=== PATIENT | male | born 1955 | race Caucasian/White ===

== ENCOUNTER → 2017-08-02 | Outpatient (CLI) | payer BC | LOC: GMAJ 14:14 | PROVIDERS: ATTEND Family Medicine | DX: Z00.00 Encounter for general adult medical examination without abnormal findings (principal) ==

== ENCOUNTER → 2018-04-12 | Outpatient (CLI) | payer MEDICARE ==
--- NOTE | 2018-04-12 08:35 | RAD ---
EXAM DESCRIPTION: Hand,Left 3 Views CLINICAL HISTORY: 63 years Male, PAIN COMPARISON: None. FINDINGS: Three views of the left hand were obtained. Evaluation of the fingers on the lateral view is limited by superimposition artifact. No acute fracture or malalignment is identified. There is a suture anchor in the trapezium with degenerative changes at the first CMC joint. Calcification adjacent to the ulnar styloid suggests an old nonunited fracture versus degenerative change. Mild degenerative changes about several interphalangeal joints. IMPRESSION: Degenerative and postoperative changes without acute left hand abnormality. Electronically signed by: Duglas Arguello MD 04/12/2018 8:34 AM [facility]
--- NOTE | 2018-04-12 08:38 | RAD ---
EXAM DESCRIPTION: Wrist,Left 3 Views CLINICAL HISTORY: 63 years Male, PAIN COMPARISON: None. FINDINGS: Three views of the left wrist show no acute fracture or malalignment. Anatomic form body projecting over the trapezium probably represents a suture anchor. There are moderate degenerative changes at the first CMC joint including joint space narrowing and osteophyte formation. Calcification adjacent to the ulnar styloid is not acute and may be related to remote trauma. The radiocarpal joint space is fairly well-maintained. No additional radiopaque foreign body or soft tissue gas. IMPRESSION: Postoperative and degenerative changes without acute left wrist abnormality. Electronically signed by: Duglas Arguello MD 04/12/2018 8:37 AM [facility]
== END ==
LOC: RAD 08:15
PROVIDERS: ATTEND Orthopaedic Surgery
DX: Z01.818 Encounter for other preprocedural examination (principal); M79.642 Pain in left hand; M25.532 Pain in left wrist

== ENCOUNTER 2018-05-08 05:50 | Day surgery (SDC) | payer MEDICARE, OTHER ==
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
[2018-05-08] MEDS ORDERED: ceFAZolin SODIUM 1 GM VIAL ONE (08:04)
[2018-05-08] MEDS ORDERED: LACTATED RINGERS 1,000 ML ONE (08:04)
[2018-05-08] MEDS ORDERED: SODIUM CHL 0.9% 100ML MINI-BAG 100 ML IVPB ONE (08:04)
[2018-05-08] MEDS ORDERED: BUPIVACAINE 0.25% INJ 30 ML VIAL INJ ONE (08:09)
[2018-05-08] MEDS ORDERED: LIDOCAINE 1% 10 ML VIAL INJ ONE (08:09)
[2018-05-08] MEDS ORDERED: PROPOFOL 200 MG/20 ML VIAL IV ONE (10:00)
[2018-05-08] MEDS ORDERED: MIDAZOLAM INJ 5 MG/5 ML VIAL ONE (10:24)
[2018-05-08] MEDS ORDERED: fentaNYL CITRATE INJ 50 MCG/ML AMP ONE (10:29)
[2018-05-08] MEDS: ceFAZolin SODIUM 1 GM VIAL ONE ×2 (11:40→11:43)
[2018-05-08] MEDS: VANCOMYCIN HCL INJ 1,000 MG VIAL IVPB ONE ×2 (11:40→11:43)
[2018-05-08 14:29] VITALS: BP 119/76; TEMP 97.1; O2SAT 99
--- NOTE | 2018-05-09 08:46 | OP ---
DATE OF PROCEDURE: 05/08/18 PREOPERATIVE DIAGNOSIS: 1. Carpal tunnel syndrome. POSTOPERATIVE DIAGNOSIS: 1. Carpal tunnel syndrome. PROCEDURE: 1. Carpal tunnel release. SURGEON: Boom Dixon MD. FRIT BURNER: Rob Khalil CST, SA-C. ANESTHESIA: Local with sedation. COMPLICATIONS: None. FINDINGS: 1. Thickening of the transverse carpal ligament. 2. Thenar atrophy. 3. Narrowing of the median nerve across the carpal tunnel. INDICATION: Mr. Multani has a very long history of symptoms consistent with carpal tunnel syndrome. In addition to injury to the median nerve many years ago, he has begun having more symptoms that are specific to the median nerve distribution. We talked about that and the fact that given his injury to the median nerve, his recovery from his current symptoms would be variable. We discussed the fact that he would not gain full return to normal since he essentially was abnormal to begin with. After discussing the risks, benefits and alternatives to that, the patient has given informed consent for carpal tunnel release. PROCEDURE: The patient was brought to the Operating Room and placed in the supine position. Sedation was administered and local anesthetic was injected into the operative area under sterile conditions. After the injection of anesthetic, the arm was sterilely prepped and draped. A longitudinal incision was made directly overlying the transverse carpal ligament and blunt dissection was carried down to the ligament. The transverse carpal ligament was sharply transected along its length and a [place] elevator was used to ensure complete release of the ligament. Once release had been confirmed, the wound was thoroughly irrigated and the wound was closed with Nylon suture. A sterile dressing was placed and the patient was taken to the Day Surgery Unit. POSTOPERATIVE PLAN: The patient has been encouraged to do range of motion of the digits and will followup with us in two days. [facility][id number] [facility]
== END 2018-05-08 12:45 | disposition home or self-care (01) ==
LOC: AMB 05:50
PROVIDERS: ATTEND Orthopaedic Surgery
DX: G56.02 Carpal tunnel syndrome, left upper limb (principal)
CPT/HCPCS: 01810; 64721; 80307; J0690; J2250; J3010; J3370; J3490; J7050; J7120

== ENCOUNTER → 2018-10-21 | Outpatient (CLI) | payer MEDICARE ==
--- NOTE | 2018-10-22 08:24 | CT ---
Procedure: CT LUNG SCREENING Exam Date: 10/21/2018. Ordering Provider: Humza Yang Clinical Indication: Tobacco use. Current cigarette smoker. 35 pack years. This patient meets eligibility criteria for low-dose CT lung cancer screening. Comparison: CT scan of the lungs May 16 2006. Technique: Using a multislice scanner, sequential helical axial imaging was obtained in the thorax, 2.5 mm thickness, 2.5 mm separation, from the level of the thoracic inlet through the lung bases without IV contrast. A low dose protocol was utilized for BMI less than 30: BMI: 20.5. CTDI: 1.76 mGy. 120. kVp. 45 mA. DLP 73.82 mGy-centimeters. 2D sagittal and coronal reconstructed images, 6.0 mm thickness, were obtained. This exam was performed according to our departmental dose optimization program which includes use of automated exposure control, adjustment of the mA and/or kV according to patient size and/or use of iterative reconstruction technique. Nodule measurements under 10 mm are given as mean value of 3 axes diameters. FINDINGS: Lungs and large airways: Small calcified nodule left upper lobe. 3 mm groundglass nodule on axial series 3, image 50. Bilateral blebs and occasional bulla in a centrilobular distribution more prevalent in the upper lung govea but also multiple small subpleural blebs posteriorly and medially adjacent to the right lower lobe. Fewer blebs abutting the left lower lobe and right middle lobe pleura. Also bibasilar dependent atelectasis, more on the right. Small calcified nodule right lower lobe. No pulmonary masses or focal infiltrates bilaterally. Pleura and space: No visible blebs as described previously mostly in the posterior right lower lobe. No pleural effusion or pneumothorax. Mediastinum and delmar: evaluation limited by low dose technique and lack of IV contrast. Fibrosis or thymus remnant in the anterior mediastinum. Lymph nodes upper limits of normal diameter in the mediastinum. No dominant soft tissue masses. Heart and great vessels: Calcification of 2 of the coronary arteries. Minimal atherosclerotic calcification of the aorta. Chest wall, lower neck, axillae: Evaluation also limited by same factors as described above. No dominant soft tissue masses. Upper abdomen: Evaluation limited by low-dose technique. No peritoneal fluid or free air. Gallbladder partially visualized. Atherosclerotic calcification of the abdominal aorta. Osseous structures: Evaluation limited by low dose MIP technique. Mild spondylosis and scoliosis. Arthrosis right sternoclavicular joint. No lytic or blastic lesions. IMPRESSION: Moderate emphysematous changes more parenchymal in the upper lung govea and more pleural-based in the lower thorax especially right lower lobe. Progression since the prior study in May 2006. No abnormal nodules, no masses, and no focal infiltrates.. [facility] Best Practice recommendations: Please see below for Lung RADS category and FOLLOW-UP.* *Lung RADS category Category 1 - No nodule or definitely benign nodules (probability of malignancy less than 1%). Follow-up: Continue annual screening with Low Dose Chest CT in 12 months. Electronically signed by: Rob Trujillo MD 10/22/2018 8:21 AM CDT
== END ==
LOC: CT 09:00
PROVIDERS: ATTEND Family Medicine
DX: Z87.891 Personal history of nicotine dependence (principal); J43.9 Emphysema, unspecified

== ENCOUNTER → 2018-10-25 | Outpatient (CLI) | payer MEDICARE, OTHER ==
--- NOTE | 2018-10-25 09:13 | RAD ---
EXAM DESCRIPTION: Hand,Left 3 Views CLINICAL HISTORY: M79.642 COMPARISON: April 12, 2018. TECHNIQUE: AP, LATERAL, AND OBLIQUE RADIOGRAPHS OF THE LEFT HAND. FINDINGS: The visualized bones appear well mineralized. No acute fracture or dislocation. Again noted is a suture anchor in the trapezium with the degenerative changes of the first CMC joint with slight subluxation. Persistent calcification adjacent to the ulnar-sided process likely represents an old nonunited fracture. Chondrocalcinosis of the TFCC cartilage is noted. Mild degenerative changes at several interphalangeal joints. IMPRESSION: 1. Stable postoperative changes with a suture anchor in the trapezium. 2. Severe degenerative changes of the first CMC joint with slight subluxation. 3. 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 4. Probable old nonunited ulnar styloid process fracture. Grossly normal radiographs of the right foot. Electronically signed by: Raymundo Camejo MD 10/25/2018 9:11 AM CDT
== END ==
LOC: RAD 08:35
PROVIDERS: ATTEND Orthopaedic Surgery
DX: M11.242 Other chondrocalcinosis, left hand (principal); M19.042 Primary osteoarthritis, left hand

== ENCOUNTER 2018-11-05 05:21 | Day surgery (SDC) | payer MEDICARE, OTHER ==
[2018-11-05] MEDS ORDERED: SODIUM CHL 0.9% 100ML MINI-BAG 100 ML IVPB ONE (05:51)
[2018-11-05] MEDS ORDERED: LACTATED RINGERS 1,000 ML ONE (05:51)
[2018-11-05] MEDS ORDERED: ceFAZolin SODIUM 1 GM VIAL ONE ×2 (05:52→06:38)
[2018-11-05] MEDS ORDERED: MIDAZOLAM INJ 5 MG/5 ML VIAL ONE (06:35)
[2018-11-05] MEDS ORDERED: fentaNYL CITRATE INJ 50 MCG/ML AMP ONE (06:36)
[2018-11-05] MEDS ORDERED: BUPIVACAINE 0.25% INJ 30 ML VIAL INJ ONE (06:39)
[2018-11-05] MEDS ORDERED: LIDOCAINE 1% 50 ML VIAL INJ ONE (06:39)
[2018-11-05] MEDS ORDERED: VANCOMYCIN HCL INJ 1,000 MG VIAL IVPB ONE (06:39)
[2018-11-05] MEDS ORDERED: PROPOFOL 200 MG/20 ML VIAL IV ONE (07:00)
[2018-11-05] MEDS ORDERED: LIDOCAINE 1% 10 ML VIAL INJ ONE (07:00)
[2018-11-05 08:58] VITALS: BP 117/67; TEMP 97.9; O2SAT 97
--- NOTE | 2018-11-07 08:04 | OP ---
DATE OF PROCEDURE: 11/05/18 PREOPERATIVE DIAGNOSIS: 1. Left first and fourth trigger finger. POSTOPERATIVE DIAGNOSIS: 1. Left first and fourth trigger finger. PROCEDURE: 1. Trigger finger release at left third and fourth digits. SURGEON: Boom Dixon MD. TEACHER'S AIDE: Rob Khalil CST, SA-C. ANESTHESIA: Local with sedation. COMPLICATIONS: None. FINDINGS: Triggering at the A1 marium on the first and fourth digits. INDICATION: Mr. Multani has a history of both pain and triggering at the A1 marium of both the aforementioned digits. Because of his ongoing pain, he has requested operative intervention. After discussing the risks, benefits and alternatives to operative therapy, the patient has given informed consent. PROCEDURE: The patient was brought to the Operating Room and placed in the supine position. Sedation was administered and local anesthetic was injected into the operative area. Following injection, the arm was sterilely prepped and draped. A transverse incision was made directly overlying the A1 marium of the first digit and blunt dissection was carried down to the marium while protecting the digital nerves. After identification of the marium, the marium was transected and a [place] elevator was passed both proximally and distally to ensure complete release. The finger was flexed and extended and there was no evidence of locking or clicking. The procedure was repeated at the fourth digits. The wounds were very thoroughly irrigated and closed with Nylon suture. A sterile dressings were placed and the patient was taken to the Day Surgery Unit. POSTOPERATIVE PLAN: The patient has been encouraged to do range of motion of the digits and will followup with us in two days. #[id number] [facility]
== END 2018-11-05 08:50 | disposition home or self-care (01) ==
LOC: AMB 05:21
PROVIDERS: ATTEND Orthopaedic Surgery
DX: M65.312 Trigger thumb, left thumb (principal); M65.342 Trigger finger, left ring finger; Z79.899 Other long term (current) drug therapy
CPT/HCPCS: 01810; 26055; 80307; 87070; J0690; J2250; J3010; J3370; J3490; J7050; J7120

== ENCOUNTER 2018-11-10 11:51 | Emergency (ER) | payer MEDICARE, OTHER ==
[2018-11-10] MEDS ORDERED: NITROGLYCERIN/D5W IV 250 ML IVS ONE (12:02)
[2018-11-10] MEDS ORDERED: HYDROmorphone HCL INJ 2 MG/ML VIAL IV ONE ×3 (13:15→14:44)
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
[2018-11-10] MEDS ORDERED: ceFAZolin SODIUM 2 GRAMS PREMI 2 GM in PREMIX BAG 1 BAG IVPB ONE (13:22)
[2018-11-10] MEDS ORDERED: TETANUS,DIPHTHERIA,PERTUSSIS 1 EA SYG IM ONE (13:22)
--- NOTE | 2018-11-10 13:32 | RAD ---
CLINICAL HISTORY: pain, swelling COMPARISON: None. TECHNIQUE: XR ANKLE 3 OR MORE VIEWS 11/10/2018 1:13 PM CDT FINDINGS: There is an oblique, mildly displaced fracture of the lower third of the fibular shaft. There are degenerative changes throughout the midfoot. There is subluxation of the tibiotalar joint. There is mostly medial soft tissue swelling around the ankle. IMPRESSION: Subluxation of tibiotalar joint with displaced distal fibular fracture. Electronically signed by: Paco Kaiser MD 11/10/2018 1:31 PM CDT
[2018-11-10] MEDS ORDERED: SODIUM CHLORIDE 0.9% 100ML 100 ML IVPB ONE (13:59)
[2018-11-10] MEDS ORDERED: ceFAZolin SODIUM 1 GM VIAL ONE (13:59)
[2018-11-10 16:08] VITALS: BP 126/79; TEMP 98.1; O2SAT 98
== END 2018-11-10 16:00 | disposition home or self-care (01) ==
LOC: ER 11:51
DX: S82.832A Other fracture of upper and lower end of left fibula, initial encounter for closed fracture (principal); Z23 Encounter for immunization; V09.9XXA Pedestrian injured in unspecified transport accident, initial encounter; Y93.89 Activity, other specified; Y92.9 Unspecified place or not applicable
CPT/HCPCS: 73610; 90471; 90715; J0690; J1170; J7050

== ENCOUNTER 2018-11-12 05:21 | Day surgery (SDC) | payer MEDICARE, OTHER ==
--- NOTE | 2018-11-11 11:46 | HP ---
CHIEF COMPLAINT: Left ankle pain. HISTORY OF PRESENT ILLNESS: Mr. Multani is a patient of ours that we treated for his hands. Unfortunately, he fell yesterday and had the acute onset of pain in the left ankle. He was taken to the Emergency Room and x-rays revealed a fracture of the ankle with lateral subluxation of the talus. He denies any other injury associated with this, denies radiation of pain or neurologic symptoms. He has been in a splint and on crutches since the even occurred. PAST SURGICAL HISTORY: 1. Carpal tunnel release. 2. Trigger finger release. MEDICATIONS: 1. Vitamins. PAIN CONTRACT: None. ALLERGIES: NO KNOWN DRUG ALLERGIES. CODE STATUS: Full code. IMMUNIZATIONS: Up to date. SOCIAL HISTORY: The patient does not smoke or use recreational drugs. He does drink on occasion. FAMILY HISTORY: None pertinent to today's complaint. REVIEW OF SYSTEMS: Negative except as indicated in the History of Present Illness. PHYSICAL EXAMINATION: VITAL SIGNS: Blood pressure 160/100. Pulse 72. Height 5'11". Weight 155 pounds. MENTAL STATUS: The patient is awake, alert, and is able to give a good history and participate in the physical. The patient is oriented to person, place and time. SKIN: Normal tone and turgor. HEENT: Normocephalic, atraumatic. Pupils equal, round and reactive. Mucosal membranes are moist. NECK: Normal range of motion. No thyromegaly, no lymphadenopathy. CHEST: Normal respiratory excursion. CARDIAC: Regular rate and rhythm. No murmurs, rubs or gallops. MUSCULOSKELETAL: The bilateral upper extremities show full active range of motion. He has intact sensation in the extremities and they are warm and well perfused. He has right lower extremity with intact sensation. It is warm and well perfused. There is no deformity and no malalignment. There is no swelling or crepitus with range of motion. The left lower extremity shows no deformity at the hip or knee. He has obvious lateral subluxation of the talus. He has swelling in the ankle, but it does appear to be amenable to surgery. He has intact sensation. His foot is warm and well perfused. There is a very small area over the medial malleolus where the skin has been compressed although it is intact right now. IMAGING: X-rays show a fibula fracture with lateral subluxation of the tibia and disruption of the mortise. ASSESSMENT: 1. Ankle fracture. PLAN: The plan at this point is for open reduction internal fixation. We have discussed the risks, benefits, and alternatives to that and the patient has given informed consent. #[id number] [facility]
[2018-11-12] MEDS ORDERED: LACTATED RINGERS 1,000 ML ONE (05:52)
[2018-11-12] MEDS ORDERED: ceFAZolin SODIUM 1 GM VIAL ONE ×3 (05:52→08:36)
[2018-11-12] MEDS ORDERED: SODIUM CHL 0.9% 100ML MINI-BAG 100 ML IVPB ONE (05:53)
[2018-11-12] MEDS ORDERED: VANCOMYCIN HCL INJ 1,000 MG VIAL IVPB ONE (06:37)
[2018-11-12] MEDS ORDERED: BUPIVACAINE 0.5% 30 ML VIAL INJ ONE (06:37)
[2018-11-12] MEDS ORDERED: BUPIVACAINE LIPOSOME 13.3 MG/ML VIAL INJ ONE (06:38)
[2018-11-12] MEDS ORDERED: HYDROmorphone HCL INJ 2 MG/ML VIAL ONE (06:45)
[2018-11-12] MEDS ORDERED: MIDAZOLAM INJ 2 MG/2 ML VIAL ONE (06:45)
[2018-11-12] MEDS ORDERED: KETAMINE HCL 50 MG/ML SYG IV ONE (06:52)
--- NOTE | 2018-11-12 09:46 | RAD ---
PROVIDED CLINICAL HISTORY/REASON FOR EXAM: ORIF Findings/impression: Four intraoperative fluoroscopic images of internal fixation of the left ankle fracture/subluxation. Dose: Not provided Time: Less than one hour Electronically signed by: Kahlil Puga MD 11/12/2018 9:44 AM CDT
[2018-11-12] MEDS ORDERED: raNITIdine HCL INJ 25 MG/ML VIAL IV ONE (10:00)
[2018-11-12] MEDS ORDERED: SODIUM CHLORIDE 0.9% 50 ML VIAL INJ ONE (10:00)
[2018-11-12] MEDS ORDERED: METOCLOPRAMIDE HCL INJ 10 MG/2 ML VIAL IV ONE (10:00)
[2018-11-12] MEDS ORDERED: PHENYLEPHRINE INJ 1ML 10 MG/ML VIAL IV ONE (10:00)
[2018-11-12] MEDS ORDERED: ePHEDrine SULF 50 MG/ML IV ONE (10:00)
[2018-11-12] MEDS ORDERED: LIDOCAINE 1% 10 ML VIAL INJ ONE (10:00)
[2018-11-12] MEDS ORDERED: diphenhydrAMINE HCL 50 MG/ML VIAL IV ONE (10:00)
[2018-11-12] MEDS ORDERED: DEXAMETHASONE INJ 10 MG/ML VIAL IV ONE (10:00)
[2018-11-12] MEDS ORDERED: PROPOFOL 200 MG/20 ML VIAL IV ONE (10:00)
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
[2018-11-12] MEDS ORDERED: HYDROcodone 5MG/APAP 325MG 1 EA TAB ONE (11:20)
[2018-11-12 13:06] VITALS: O2SAT 92
[2018-11-12 13:10] VITALS: BP 114/72; TEMP 98.8
--- NOTE | 2018-11-14 08:01 | OP ---
DATE OF PROCEDURE: 11/12/18 PREOPERATIVE DIAGNOSIS: 1. Left ankle fracture. POSTOPERATIVE DIAGNOSIS: 1. Left ankle fracture. PROCEDURE: 1. ORIF of ankle. SURGEON: Boom Dixon MD. MARKETING ANALYTICS ANALYST: Rob Khalil CST, SA-C. ANESTHESIA: General anesthesia. COMPLICATIONS: None. FINDINGS: Transverse fracture of the fibula and disruption of the mortise. INDICATION: Mr. Multani has a history of a fall that occurred on the day prior to presentation. Mr. Multani had x-rays that revealed an ankle fracture with instability of the mortise. Because of that, he and I discussed the risks, benefits and alternatives to operative therapy. Informed consent was obtained for ORIF. PROCEDURE: The patient was brought to the Operating Room and placed in supine position. General anesthesia was induced and the patient's leg was sterilely prepped and draped. An incision was made over the lateral aspect of the ankle centered on the fracture. Dissection was carried down to the fracture and it was reduced. A 7-hole plate was placed across the fracture and the mortise was reduced. Two syndesmosis screws were placed from lateral to medial. Following that, the wound was very thoroughly irrigated. The ankle was stressed under direct fluoroscopic imaging and it was stable. The wound was again irrigated and was closed with a combination of running and interrupted subcuticular stitches. Sterile dressings were placed. The patient was placed in a splint, awoken from anesthesia and taken to Recovery. POSTOPERATIVE PLAN: He will be non-weightbearing and will followup with us in 2 days. He has been encouraged to keep the extremity elevated. #[id number] [facility]
== END 2018-11-12 12:10 | disposition home or self-care (01) ==
LOC: AMB 05:21
PROVIDERS: ATTEND Orthopaedic Surgery
DX: S82.422A Displaced transverse fracture of shaft of left fibula, initial encounter for closed fracture (principal); I45.10 Unspecified right bundle-branch block; W19.XXXA Unspecified fall, initial encounter
CPT/HCPCS: 01480; 27784; 36415; 73600; 76000; 80048; 80307; 81001; 85025; 87070; 93005; A4216; C1713; C9359; J0690; J1100; J1170; J1200; J2250; J2765; J2780; J3370; J3490; J7050; J7120

== ENCOUNTER 2018-12-05 05:42 | Day surgery (SDC) | payer MEDICARE, OTHER ==
[2018-12-05] MEDS ORDERED: PROPOFOL 200 MG/20 ML VIAL IV ONE (07:00)
[2018-12-05] MEDS ORDERED: LIDOCAINE 1% 10 ML VIAL INJ ONE (07:00)
[2018-12-05] MEDS ORDERED: LACTATED RINGERS 1,000 ML ONE (10:00)
[2018-12-05] MEDS ORDERED: MIDAZOLAM INJ 5 MG/5 ML VIAL ONE (10:31)
--- NOTE | 2018-12-05 13:28 | OP ---
DATE OF PROCEDURE: 12/05/18 PROCEDURE: 1. Screening colonoscopy. SURGEON: Fabian Nicole MD ANESTHESIA: General. PROCEDURE: The patient was brought to the Operating Suite. General anesthesia was induced in the left lateral position. Digital rectal exam revealed no masses or significant hemorrhoids, evidence of fissure or fistula. The scope was then advanced into the anal canal and with minimal difficulty advanced to the terminal ileum. We were not able to cannulate the terminal ileum, but identified the cecum without difficulty. There was a good prep. On withdrawal, the colon was clean throughout except one polyp about 4 mm in the proximal descending colon which was removed with a cold snare and no bleeding. With a good exam, there was no other evidence of polyps. Retroflexion showed minimal internal hemorrhoids. He tolerated the procedure and then awakened and taken to Recovery to be discharged. #[id number] cc: Fabian Holt MD [facility]
[2018-12-05 14:38] VITALS: BP 100/44; TEMP 98.1; O2SAT 98
== END 2018-12-05 14:15 | disposition home or self-care (01) ==
LOC: AMB 05:42
PROVIDERS: ATTEND Surgery
DX: Z12.11 Encounter for screening for malignant neoplasm of colon (principal); D12.4 Benign neoplasm of descending colon; K64.8 Other hemorrhoids; K21.9 Gastro-esophageal reflux disease without esophagitis; Z87.891 Personal history of nicotine dependence
CPT/HCPCS: 00812; 45385; 88305; J2250; J3490; J7120

== ENCOUNTER → 2018-12-20 | Outpatient (CLI) | payer MEDICARE, OTHER ==
--- NOTE | 2018-12-21 09:11 | RAD ---
EXAM DESCRIPTION: Ankle,Right 3 Views CLINICAL HISTORY: 63 years Male, FRACTURE OF LOWER END OF LEFT FIBULA COMPARISON: November 12, 2018 Findings: Lateral plate and screws transfix a healing distal fibular fracture. Syndesmotic screws. No evidence of hardware complication. No focal soft tissue swelling. Stable alignment. No new fracture identified. The talar dome is unremarkable. Ankle mortise is symmetric. IMPRESSION: Healing internally fixated fibular fracture. Electronically signed by: Kahlil Puga MD 12/21/2018 9:10 AM CDT
== END ==
LOC: RAD 07:51
PROVIDERS: ATTEND Orthopaedic Surgery
DX: S89.392D Other physeal fracture of lower end of left fibula, subsequent encounter for fracture with routine healing (principal)

== ENCOUNTER → 2019-01-17 | Outpatient (CLI) | payer MEDICARE, OTHER ==
--- NOTE | 2019-01-17 10:19 | RAD ---
EXAM DESCRIPTION: Ankle,Left 3 Views CLINICAL HISTORY: 63 years Male, FRACTURE OF LEFT FIBULA COMPARISON: Radiographs of the left fibula dated 12/20/2018. TECHNIQUE: AP, oblique and lateral radiographs. FINDINGS: The visualized bones appear poorly mineralized. Plate and screw fixation of the distal fibula with no significant interval healing. Syndesmotic screws are also identified. The ankle mortise is intact. The soft tissues appear grossly unremarkable. IMPRESSION: Unchanged appearance of the left ankle compared to prior radiographs dated 12/20/2018. Electronically signed by: Genesis Robbins MD 01/17/2019 10:17 AM CDT
== END ==
LOC: RAD 09:00
PROVIDERS: ATTEND Orthopaedic Surgery
DX: S89.392D Other physeal fracture of lower end of left fibula, subsequent encounter for fracture with routine healing (principal)

== ENCOUNTER → 2019-02-21 | Outpatient (CLI) | payer MEDICARE, OTHER ==
--- NOTE | 2019-02-21 12:55 | RAD ---
EXAM DESCRIPTION: Ankle,Left 3 Views CLINICAL HISTORY: 63 years Male, FX OF FIBULA-LEFT COMPARISON: 01/17/2019 Findings: Three views/x-rays Lateral plate and screws transfix the healing distal fibular fracture. Similar alignment. No hardware complication. Syndesmotic screw, unchanged. The talar dome is unremarkable. The ankle mortise is symmetric. No new fracture identified. IMPRESSION: Healing internally fixated distal fibular fracture. Electronically signed by: Kahlil Puga MD 02/21/2019 12:53 PM [facility]
== END ==
LOC: RAD 10:02
PROVIDERS: ATTEND Orthopaedic Surgery
DX: S89.392D Other physeal fracture of lower end of left fibula, subsequent encounter for fracture with routine healing (principal)

== ENCOUNTER → 2020-02-04 | Outpatient (CLI) | payer MEDICARE, OTHER | LOC: YCFC.O 09:52 | PROVIDERS: ATTEND Family Medicine | DX: J44.9 Chronic obstructive pulmonary disease, unspecified (principal); E55.9 Vitamin D deficiency, unspecified; R53.83 Other fatigue; R35.1 Nocturia; Z79.899 Other long term (current) drug therapy; Z12.5 Encounter for screening for malignant neoplasm of prostate; Z13.220 Encounter for screening for lipoid disorders | CPT/HCPCS: 36415; 80053; 80061; 81001; 82306; 84443; 85025; G0103 ==

== ENCOUNTER 2020-05-10 05:24 | Day surgery (SDC) | payer MEDICARE, OTHER ==
[2020-05-10] MEDS ORDERED: TROP1%/CYCLOPEN 1%/PHENYL 2.5% DROPS OPHTH ONE (05:25)
[2020-05-10] MEDS ORDERED: MIDAZOLAM INJ 2 MG/2 ML VIAL ONE ×3 (06:58→08:35)
[2020-05-10] MEDS ORDERED: PROPARACAINE 0.5% OPHTH SOL 15 ML BTTL LEFT_EYE ONE ×2 (07:36→08:02)
[2020-05-10] MEDS ORDERED: DEXAMETHASONE 0.1% OPHTH SOL 1 DROP LEFT_EYE ONE ×2 (07:37→08:02)
[2020-05-10] MEDS ORDERED: MOXIFLOXACIN HCL (OPHTH) 1 DROP DROPS LEFT_EYE ONE ×2 (07:37→08:02)
[2020-05-10] MEDS ORDERED: LIDOCAINE 1% 2 ML VIAL INJ ONE ×2 (07:37→08:02)
[2020-05-10] MEDS ORDERED: TOBRAMYCIN SULF 0.3 % OPHT SOL 1 DROP LEFT_EYE ONE ×2 (07:38→08:02)
[2020-05-10] MEDS ORDERED: BRIMONIDINE 0.2% OPHTH DROPS LEFT_EYE ONE ×2 (07:38→08:02)
[2020-05-10] MEDS ORDERED: fentaNYL CITRATE INJ 50 MCG/ML 2 ML AMP ONE (08:35)
== END 2020-05-10 09:31 | disposition home or self-care (01) ==
LOC: AMB 05:24
PROVIDERS: ATTEND Ophthalmology
DX: H25.12 Age-related nuclear cataract, left eye (principal); H52.202 Unspecified astigmatism, left eye
CPT/HCPCS: 66984; 66999; J2250; J3010

== ENCOUNTER 2020-05-31 05:27 | Day surgery (SDC) | payer MEDICARE, OTHER ==
[2020-05-31] MEDS ORDERED: TROP1%/CYCLOPEN 1%/PHENYL 2.5% DROPS OPHTH ONE (05:28)
[2020-05-31] MEDS ORDERED: MIDAZOLAM INJ 5 MG/5 ML VIAL ONE (07:00)
[2020-05-31] MEDS ORDERED: PROPARACAINE 0.5% OPHTH SOL 15 ML BTTL RIGHT_EYE ONE ×2 (07:24)
[2020-05-31] MEDS ORDERED: MOXIFLOXACIN HCL (OPHTH) 1 DROP DROPS RIGHT_EYE ONE ×2 (07:32→07:56)
[2020-05-31] MEDS ORDERED: LIDOCAINE 1% MPF 2 ML VIAL INJ ONE ×3 (07:32→07:46)
[2020-05-31] MEDS ORDERED: DEXAMETHASONE 0.1% OPHTH SOL 1 DROP RIGHT_EYE ONE ×2 (07:33→07:57)
[2020-05-31] MEDS ORDERED: BRIMONIDINE 0.2% OPHTH DROPS RIGHT_EYE ONE ×2 (07:33→07:57)
[2020-05-31] MEDS ORDERED: TOBRAMYCIN SULF 0.3 % OPHT SOL 1 DROP RIGHT_EYE ONE ×2 (07:33→07:57)
[2020-05-31] MEDS ORDERED: MIDAZOLAM INJ 2 MG/2 ML VIAL ONE (07:44)
== END 2020-05-31 08:43 | disposition home or self-care (01) ==
LOC: AMB 05:27
PROVIDERS: ATTEND Ophthalmology
DX: H25.11 Age-related nuclear cataract, right eye (principal)
CPT/HCPCS: 00142; 66984; 66999; J2250